=== PATIENT | male | born 1995 | race African-American/Black ===

== ENCOUNTER 2017-10-17 19:56 | Emergency (ER) | payer SELFPAY ==
[~2017-10-17] VITALS: Ht 167.6 cm; Wt 65.8 kg
[2017-10-17 19:58] VITALS: BP 125/88
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
--- NOTE | 2017-10-17 20:00 | NUR ---
PT AMB W/O ASST TO ER BED2
[2017-10-17] MEDS ORDERED: BACITRACIN OINT 500 UNITS/GM PKT TP ONE (21:19)
[2017-10-17 21:23] VITALS: BP 125/88
== END 2017-10-17 21:23 | disposition home or self-care (01) ==
LOC: MED 19:56
DX: S93.401A Sprain of unspecified ligament of right ankle, initial encounter (principal); S93.601A Unspecified sprain of right foot, initial encounter; V74.6XXA Passenger on bus injured in collision with heavy transport vehicle or bus in traffic accident, initial encounter; Y93.I9 Activity, other involving external motion; Y92.488 Other paved roadways as the place of occurrence of the external cause; Y99.8 Other external cause status
CPT/HCPCS: 72050; 73590; 73610; 73630; 99284